=== PATIENT | male | born 2000 | race Hispanic/Latino ===

== ENCOUNTER 2021-07-04 22:32 | Emergency (ER) | payer OTHER ==
[~2021-07-04] VITALS: Ht 175.3 cm; Wt 79.8 kg
[2021-07-04] MEDS ORDERED: LIDOCAINE 1% W/EPINEPHRINE 20 ML VIAL INJ ONE (23:00)
[2021-07-04] MEDS ORDERED: TETANUS/DIPHTHERIA TOX ADULT 0.5 ML SYR IM ONE (23:00)
[2021-07-04] MEDS ORDERED: LIDOCAINE 1% W/EPINEPHRINE 20 ML VIAL ONE (23:10)
[2021-07-04] MEDS ORDERED: TETANUS/DIPHTHERIA TOX ADULT 0.5 ML SYR ONE (23:33)
[2021-07-04] MEDS ORDERED: IBUPROFEN600 MG PO (23:40)
[2021-07-04] MEDS ORDERED: CLINDAMYCIN HC150 MG PO (23:40)
== END 2021-07-04 23:49 | disposition home or self-care (01) ==
LOC: FSED 23:00
DX: L02.416 Cutaneous abscess of left lower limb (principal)
CPT/HCPCS: 27301; 90471; 90714; 99283